=== PATIENT | female | born 1975 | race Caucasian/White ===

== ENCOUNTER 2016-10-30 12:06 | Emergency (ER) | payer BC ==
--- NOTE | ~2016-10-30 | CR63 ---
[facility] A Service of [facility] & [facility] RADIOLOGY TEXT RESULTS PATIENT: TABBY PÉREZ LOCATION: SED : 77 UNIT #: [id number] AGE: [address]: Jorden Webber MD SEX: F ORDER DR: [id number] [place] [id number] E MR#: [id number] Acc #: [id number] NAME: TABBY PÉREZ : 1975 SEX: F STUDY DATE/TIME: 10/30/2016 12:01 UNIT: SED ROOM: STUDY DESCRIPTION: CR Chest 2 View Attending Physician: Jorden Webber M.D. Referring Physician: Jorden Webber M.D. Ordering Physician: Jorden Webber M.D. Primary Care Physician: Rufus Guzman M.D. MEDICAL IMAGING REPORT This report is preliminary unless electronic signature is present. EXAM Chest x-ray, 10/30. INDICATION Cough for the last 3 weeks. FINDINGS 2 views of the chest are compared with 09/15/2015. Cardiomegaly is stable. The lungs are clear. There is no pneumothorax. IMPRESSION Stable mild cardiomegaly. No active disease. Dictated by... Koko Blair Jr., M.D. THIS IS AN ELECTRONICALLY VERIFIED REPORT Koko Blair Jr., M.D. at 10/30/2016 4:49 PM WERNERK/nataliia TD: 10/30/2016 14:32 JOB #: [id number] MEDICAL IMAGING REPORT Page 1 of 1
[~2016-10-30 12:06] MED LIST: ALPRAZOLAM PO; ANXIETY MED; BENZONATATE; BIOTIN5 MG PO; CARAFATE; DARVOCET-N 1001 TAB; EFFEXOR XR75 MG PO; ERYTHROMYCIN B500 MG PO; LINZESS290 MCG PO; LORTAB 7.5-5001 TAB; MELOXICAM15 MG PO; MILK OF MAGNESIA PO; NEXIUM PO; OMEPRAZOLE40 M1 PO; PREDNISONE; PREMARIN PO; PRILOSEC; SENNA PO; SINGULAIR
== END 2016-10-30 13:58 | disposition home or self-care (01) ==
LOC: SED 12:06
DX: J20.9 Acute bronchitis, unspecified (principal); R09.1 Pleurisy; F17.210 Nicotine dependence, cigarettes, uncomplicated; Z88.0 Allergy status to penicillin
CPT/HCPCS: 71020; 99283

== ENCOUNTER 2017-04-23 08:34 | Emergency (ER) | payer OTHER ==
[~2017-04-23] VITALS: Ht 162.6 cm; Wt 92.5 kg
== END 2017-04-23 10:10 | disposition home or self-care (01) ==
LOC: CFTX 08:34 → CED 08:34 → CFTX 10:10
DX: S29.012A Strain of muscle and tendon of back wall of thorax, initial encounter (principal); K58.9 Irritable bowel syndrome, unspecified; K21.9 Gastro-esophageal reflux disease without esophagitis; F17.210 Nicotine dependence, cigarettes, uncomplicated; Z90.49 Acquired absence of other specified parts of digestive tract; Z90.710 Acquired absence of both cervix and uterus; Z88.0 Allergy status to penicillin; X50.9XXA Other and unspecified overexertion or strenuous movements or postures, initial encounter
CPT/HCPCS: 99283